=== PATIENT | female | born 1955 | race Caucasian/White ===

== ENCOUNTER 2018-05-14 03:48 | Observation (INO) ==
[2018-05-14] MEDS ORDERED: Naloxone 0.4 MG/ML INJ IVP PRN (08:35)
[2018-05-14] MEDS ORDERED: Acetaminophen 325 MG TABLET PO PRN (08:35)
[2018-05-14] MEDS ORDERED: *HR* HYDROcodone/Acet 5/325 mg TABLET PO PRN (08:35)
--- NOTE | 2018-05-14 08:46 | Internal Med History&Physical ---
Date of Encounter: 05/14/18 Time of Encounter: 08:46 Internal Medicine - H&P: HPI Chief complaint: CP Admitted From: Hospital to Hospital Transfer Plans for Post Hospital Care: Home History of present illness: Ms. Rodriguez is a 62 year old female -past medical history of-atrial fibrillation GERD hypertension-patient states that she began to experience midsternal chest pressure as well as epigastric burning and nausea radiating to her back. She did have associated symptoms of nausea however denies any shortness of breath diaphoresis lightheadedness or palpitations-there were no aggravating factors and the pressure and burning relieved on its own. Originally presented to [facility] ED lab work did reveal low potassium and magnesium troponins were negative. She was given GI cocktail in the ED Initial EKG did show a sinus pause-but no ST-T wave abnormalities. She was transferred to this facility for further cardiac workup. Currently patient denies any chest pain/epigastric pain. She does have some tenderness to epigastric area on palpation. I did review treatment plan with the patient and her who is at the bedside. Both verbalized understanding-patient requests to be a full code at this time. 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 Psychiatric history: no psych history - Past Surgical History Surgical History: other Additional surgical history: bilateral salpingectomy, skin graft in mouth - Social History Smoking Status: Former smoker Smokeless Tobacco Status: No Alcohol use: none Drug use: none - Family History Mother Living Status: Cause of : cancer Hx Family Cardiac Disorders: No Father History Unknown: Yes Living Status: Cause of : cancer Hx Family Cardiac Disorders: Yes Hx Family Endocrine Disorder: Yes (DM) Internal Medicine - H&P: Meds Naproxen [Naprosyn] 500 mg PO BID 07/29/15 [History] Omeprazole [PriLOSEC] 20 mg PO BIDAC 07/29/15 [History] traMADol [Ultram] 50 mg PO BID 07/29/15 [History] Aspirin [Lo-Dose Aspirin EC] 81 mg PO DAILY 05/14/18 [History] Chlorthalidone 50 mg PO DAILY 05/14/18 [History] DULoxetine [Cymbalta] 30 mg DAILY 05/14/18 [History] Losartan Potassium [Cozaar] 100 mg DAILY 05/14/18 [History] Allergy/AdvReac Type Severity Reaction Status Date / Time celecoxib [From Celebrex] Allergy Rash Verified 07/21/15 16:05 Penicillins [PCN] Allergy See Verified 07/21/15 16:05 Comments gabapentin AdvReac See Verified 07/21/15 16:05 Comments All Systems PM: A 10-system review of systems was performed and is negative for pertinent findings except as documented above in the HPI. - Constitutional Vitals: Temp Pulse Resp BP Pulse Ox 98.0 F 69 16 139/80 96 05/14/18 07:39 05/14/18 07:39 05/14/18 07:39 05/14/18 07:39 05/14/18 07:43 General appearance: Present: A&O X 3 Exam: . - Head Head exam: Present: atraumatic, normocephalic - Eye Eye exam: Present: PERRL, conjuntiva pink, sclera anicteric Pupils: Present: PERRL - Neck Neck exam general surgery: Present: supple, trachea midline. Absent: lymphadenopathy - Respiratory Respiratory exam: Present: CTAB. Absent: accessory muscle use, rales, rhonchi, wheezes - Cardiovascular Cardiovascular exam: Present: RRR, +S1, +S2. Absent: diastolic murmur, gallop, rubs, systolic murmur - GI/Abdominal GI/Abdominal exam: Present: normal bowel sounds, soft, no peritoneal signs. Absent: distended, tenderness - Extremities Exam Extremities exam: Present: warm, radial pulses palpable and symmetrical. Absent: calf tenderness, cyanotic, pedal edema - Neurological Exam Neurological exam: Present: CN II-XII intact, oriented X3, no focal deficits. Absent: pronater drift, facial droop, speech deficit - Skin Skin exam: Present: dry, intact - Assessment and plan (1) Chest pain Current Visit: Yes Status: Acute Assessment and plan: 1 [facility] outlying facility after experiencing midsternal to epigastric chest pressure/burning which radiated to her back. There were no aggravating factors and pain relieved on its own. Patient states that she did have a cardiac workup and it was several years ago. Initial EKG outlying facility does show sinus pause patient did have low potassium and magnesium. She also states she has a history of atrial fibrillation. Initial troponin was negative which we will continue to trend 3 Repeat EKG Continuous cardiac monitoring Continue with aspirin and statin Lipid profile Nitrates as needed for chest pain We will check echo Pending cardiac workup we will make patient nothing by mouth at midnight possible stress test in a.m. Consult cardiology as needed Qualifiers: Chest pain type: unspecified Qualified Code(s): R07.9 - Chest pain, unspecified (2) Atrial fibrillation Current Visit: Yes Status: Acute Assessment and plan: 1 patient states she does have a history of atrial fibrillation currently not on anything for rate control states she takes aspirin daily. Currently patient is in sinus rhythm however she did have it appears to be a sinus pause continue with cardiac monitoring Qualifiers: Atrial fibrillation type: paroxysmal Qualified Code(s): I48.0 - Paroxysmal atrial fibrillation (3) HTN (hypertension) Current Visit: Yes Status: Acute Assessment and plan: 1 currently controlled we will continue with home medications Qualifiers: Hypertension type: essential hypertension Qualified Code(s): I10 - Essential (primary) hypertension (4) DVT prophylaxis Current Visit: Yes Status: Acute Assessment and plan: 1 patient is ambulatory (5) Abnormal EKG Current Visit: Yes Status: Acute Assessment and plan: 1 . Appears patient did have a sinus pause-1.6 sec, 1.2 sec - I did [facility] cardiology who recommended cont monitoring-history of atrial fibrillation patient on any medications for rate control other than aspirin Continuous cardiac monitoring Monitor electrolytes and replace as needed - Time Spent With Patient Total time spent is greater than 50% in coordination of care (as documented) at patient's floor/unit and/or counseling patient:
[2018-05-14] MEDS ORDERED: Nitroglycerin 0.4 MG TAB.SUBL SL PRN (10:01)
[2018-05-14 10:11] LABS: Troponin I < 0.03 ng/mL (< 0.04)
[2018-05-14] MEDS: traMADol 50 MG TABLET PO SCH ×2 (10:28→20:27)
[2018-05-14] MEDS: Aspirin Enteric Coated 81 MG Tablet PO SCH (10:28)
[2018-05-14] MEDS: *HR* Heparin 5,000 UNIT/ML VIAL SQ SCH (17:48)
[2018-05-15] MEDS: *HR* Heparin 5,000 UNIT/ML VIAL SQ SCH (05:51)
[2018-05-15 06:29] LABS: Basophils # 0.1 K/mcL (0.0-0.2); Basophils % 0.7 %; Eosinophils # 0.3 K/mcL (0.0-0.6); Eosinophils % 3.6 %; Hemoglobin 11.5 g/dL (11.5-15.4); Immature Granulocytes % 0.3 % (0-4); Lymphocytes # 3.2 K/mcL (0.6-4.6); Lymphocytes % 35.8 %; Mean Corpuscular HGB Conc 32.9 g/dL (31.6-35.5); Mean Corpuscular Hemoglobin 29.9 pg (28.0-33.3); Mean Corpuscular Volume 91.1 fL (83.0-100.0); Mean Platelet Volume 9.5 fL (9.4-12.4); Monocytes # 0.7 K/mcL (0.0-1.3); Monocytes % 7.8 %; Neutrophils # 4.7 K/mcL (1.6-8.9); Platelet Count 324 K/mcL (140-400); Red Blood Count 3.84 M/mcL (3.82-4.97); Segmented Neutrophils % 51.8 %
[2018-05-15 06:53] LABS: BUN/Creatinine Ratio 20 (6-26); Blood Urea Nitrogen 18 mg/dL (8-23); Calcium 9.3 mg/dL (8.6-10.3); Carbon Dioxide 31 mEq/L (23-29); Chloride 104 mEq/L (98-107); Chol/HDL Ratio 3.9 (0-4.9); Cholesterol 151 mg/dL (< 200); Glucose 101 mg/dL (70-105); HDL Cholesterol 39 mg/dL (40-59); LDL Cholesterol,Calculated 92 mg/dL (0-99); Osmolality,Calculated 292 (280-300); Potassium 4.1 mEq/L (3.5-5.1); Sodium 140 mEq/L (136-145); Triglycerides 101 mg/dL (< 150); eGFR For Non-African Americans > 60 (> 60)
[2018-05-15] MEDS ORDERED: Regadenoson 0.4 MG/5 ML SYRINGE IVP ONE (08:53)
[2018-05-15] MEDS: Aspirin Enteric Coated 81 MG Tablet PO SCH (11:07)
[2018-05-15] MEDS: traMADol 50 MG TABLET PO SCH (11:07)
--- NOTE | 2018-05-15 12:00 | Discharge Summary ---
<Radhika Parry P - Last Filed: 05/15/18 13:04> - NOTES TO OUTPATIENT PROVIDER Notes to Outpatient Provider: Patient will follow up with primary care provider within a week. Orders not resulted at time of discharge: Pending orders 05/14/18 08:35 ECG 12 lead ECG [ECG] Routine 05/15/18 08:38 NM marsha perf SPECT multi [NM] Routine Date of Encounter: 05/15/18 Time of Encounter: 11:55 - Discharge Diagnosis (1) Chest pain Priority: Primary Status: Acute Qualifiers: Chest pain type: unspecified Qualified Code(s): R07.9 - Chest pain, unspecified (2) Atrial fibrillation Priority: Primary Status: Acute Qualifiers: Atrial fibrillation type: paroxysmal Qualified Code(s): I48.0 - Paroxysmal atrial fibrillation (3) HTN (hypertension) Priority: Primary Status: Acute Qualifiers: Hypertension type: essential hypertension Qualified Code(s): I10 - Essential (primary) hypertension (4) DVT prophylaxis Priority: Primary Status: Suspected Hospital course: Ms. Rodriguez is a 62 year old female past medical history of-atrial fibrillation ,GERD, hypertension presented to ED for midsternal chest pressure as well as epigastric burning and nausea radiating to her back. Originally presented to [facility] ED lab work did reveal low potassium and magnesium, troponins were negative. She was given GI cocktail in the ED Initial EKG did show a sinus gurvinder se-but no ST-T wave abnormalities. Serial troponin negative . The patient was admitted for close cardiac monitoring and cardiac workup. Echo : LVEF 60%. Normal LV chamber size, wall thickness and function. Normal left ventricular diastolic function. Nuclear stress test :Perfusion imaging was negative for ischemia or infarct.Pharmacologic ECG was non diagnostic for ischemia. cardiac stress test : Gated EF = >70%. Patient had no chest pain with stress. Magnesium and potassium became normal after supplementation. After admission, the patient is getting significantly better, she does not have chest pain She is hemodynamically stable now . There are planning to send her home and she will follow-up with her primary care provider within a week. - Time Spent with Patient Total time spent providing and/or coordinating discharge services: - Discharge Medications Home Medications: RX: Naproxen [Naprosyn] 500 mg PO BID 07/29/15 [History] RX: Omeprazole [PriLOSEC] 20 mg PO BIDAC 07/29/15 [History] RX: traMADol [Ultram] 50 mg PO BID 07/29/15 [History] RX: Aspirin [Lo-Dose Aspirin EC] 81 mg PO DAILY 05/14/18 [History] RX: Chlorthalidone 50 mg PO DAILY 05/14/18 [History] RX: DULoxetine [Cymbalta] 30 mg DAILY 05/14/18 [History] RX: Losartan Potassium [Cozaar] 100 mg DAILY 05/14/18 [History] Allergies/Adverse Reactions: Allergy/AdvReac Type Severity Reaction Status Date / Time celecoxib [From Celebrex] Allergy Rash Verified 07/21/15 16:05 Penicillins [PCN] Allergy See Verified 07/21/15 16:05 Comments gabapentin AdvReac See Verified 07/21/15 16:05 Comments Date of admission: Ms. Rodriguez is a 62 year old female -past medical history of-atrial fibrillation GERD hypertension-patient states presented to ED for midsternal chest pressure as well as epigastric burning and nausea radiating to her back. The patient was initially presented to [facility] ED and she was referred to [place] for further cardiac workup. She did have associated symptoms of nausea however denies any shortness of breath diaphoresis lightheadedness or palpitations-there were no aggravating factors and the pressure and burning relieved on its own. Originally presented to [facility] ED lab work did reveal low potassium and magnesium troponins were negative. She was given GI cocktail in the ED Initial EKG did show a sinus pause-but no ST-T wave abnormalities. She was transferred to this facility for further cardiac workup. Currently patient denies any chest pain/epigastric pain. She does have some tenderness to epigastric area on palpation. I did review treatment plan with the patient and her who is at the bedside. Both verbalized understanding-patient requests to be a full code at this time. She is currently hemodynamically stable Primary care physician: PCP NONE - Constitutional Vitals: Temp Pulse Resp BP Pulse Ox 97.6 F 60 13 155/79 85 05/15/18 07:21 05/15/18 07:21 05/15/18 07:21 05/15/18 07:21 05/15/18 07:21 General appearance: Present: A&O X 3, no acute distress, answers questions appropriately Exam: .Gen: Alert, awake , Oriented to time,place and person Chest: Diminished BS b/l, No crackles, No rales, No wheezing Heart: S1S2+ RRR No Murmurs Abd: Soft, NT, BS + No organomegaly Ext: No edema, pulses are palpable, no tenderness Neuro: No focal neuro deficits Psych: Normal mood Skin: No rash - Patient Status Disposition: Home, Self-Care Condition: Fair Functional capacity at discharge: independent ambulation Overall status at discharge: patient is progressing back to baseline - Discharge Instructions Follow Up With: NONE,PCP [Primary Care Provider] - - Diet and Activity Activity: resume usual activities as tolerated Diet: low fat, low cholesterol <Ramin Mcintyre - Last Filed: 05/15/18 13:27> Orders not resulted at time of discharge: Pending orders 05/14/18 08:35 ECG 12 lead ECG [ECG] Routine 05/15/18 08:38 NM marsha perf SPECT multi [NM] Routine Date of Encounter: 05/15/18 - Discharge Diagnosis (1) Chest pain Status: Acute Qualifiers: Chest pain type: unspecified Qualified Code(s): R07.9 - Chest pain, unspecified (2) Atrial fibrillation Status: Acute Qualifiers: Atrial fibrillation type: paroxysmal Qualified Code(s): I48.0 - Paroxysmal atrial fibrillation (3) HTN (hypertension) Status: Acute Qualifiers: Hypertension type: essential hypertension Qualified Code(s): I10 - Essential (primary) hypertension (4) DVT prophylaxis Status: Suspected (5) Abnormal EKG Status: Acute Hospital course: Ms. Rodriguez is a 62 year old female - Time Spent with Patient Total time spent providing and/or coordinating discharge services: Date of admission: 05/14/18 05:06 Primary care physician: PCP NONE - Constitutional Vitals: Temp Pulse Resp BP Pulse Ox 98.2 F 58 15 139/63 99 05/15/18 12:03 05/15/18 12:03 05/15/18 12:03 05/15/18 12:03 05/15/18 12:03 - Attending Attestation I examined this patient and my medical decision-making was reviewed with the Resident Physician Dr. Parry. I agree with the documented findings, disposition and treatment plan as described except to the extent set forth below. Ms. Rodriguez is a 62 y/o F with known PMH o f Paroxysmal Afib, HTN, HD pt presented to [facility] with chest pain. Pt was admitted in the hospital and placed her on shelter monitor. Her serial troponin were negative. I reviewed her 2D Echo which showed preserved LVEF, No septal / wall motion abnomralities. Her nuclear stress test came back as negative. Her CHADS VASC score 1-2, so recommend to continue ASA for anticoag. She does not need rate control medications since her HR is in 60's already. Chest: Diminished BS B/l Heart: S1S2+ RRR No murmurs Addendum entered and electronically signed by Radhika Parry 05/15/18 13:05: We didnot gave her Lipitor as her LDL was below 90 and cardiac stress test negative.
[2018-05-15 12:09] VITALS: BP 139/63
== END 2018-05-15 16:20 | disposition home or self-care (01) ==
LOC: 3BNU → SUATTDRO 05:06
PROVIDERS: ADMIT Pediatrics; ATTEND Family Medicine